=== PATIENT | male | born 1945 | race Caucasian/White ===

== ENCOUNTER 2021-07-14 07:26 | Day surgery (SDC) | payer OTHER ==
[~2021-07-14 07:26] MED LIST: Midazolam 1 MG/ML 2 ML SDV ONE; Propofol 200 MG/20 ML SDV ONE; fentaNYL 100 MCG/2 ML SDV ONE
[2021-07-14] MEDS ORDERED: Sodium Chloride 0.9% 1,000 ML IV SCH (08:00)
[2021-07-14 10:36] VITALS: BP 125/63; PULSE 74
--- NOTE | 2021-07-14 13:58 | OR ---
DATE OF PROCEDURE: 07/14/2021 SURGEON: Jorge Alberto Naylor MD PROCEDURES PERFORMED: 1. Esophagogastroduodenoscopy. 2. Colonoscopy. FINDINGS: 1. Duodenal ulcers, multiple, approximately 2 to 3 mm in size, not actively bleeding, consistent with chronic duodenal ulcer. 2. Diverticulosis, mild, limited to sigmoid colon. COMPLICATIONS: None. BIOINFORMATICS TEAM MEMBER: None. ANESTHESIA: MAC. PREOPERATIVE DIAGNOSIS: History of ulcers/screening colonoscopy. POSTOPERATIVE DIAGNOSIS: History of ulcers/screening colonoscopy. RISKS: Risks, benefits, alternatives, and limitations including, but not limited to infection, bleeding, perforation, false positive, and false negatives were explained to the patient who wished to proceed. PROCEDURE IN DETAIL: The patient was placed in left lateral decubitus position. The EGD scope was introduced and advanced atraumatically into the second part of the duodenum. Within the duodenal bulb itself, the patient had approximately 4 to 5 duodenal ulcers, approximately 1 to 2 mm in size. These appeared to be benign. They appeared to be chronic. Biopsies were performed in this proximity for H pylori evaluation. Within the stomach itself, there was no hiatal hernia. Very mild gastritis was noted. No abnormalities on retroflex. The GE junction was normal. The esophagus was normal. The air was removed from the stomach. Digital rectal exam was performed. Next, scope was introduced and advanced atraumatically to the ileocecal valve. A photo was taken of the appendiceal orifice. The scope was brought back through the ascending, transverse, descending colon, and retroflexed. The patient had somewhat tortuous sigmoid colon associated with diverticulosis without evidence of diverticulitis or bleeding. No old or new blood. No colitis. No polyps. No abnormalities on retroflex. Greater than 8 minutes was spent on removing the scope. The prep was acceptable. Approximately 90% of the luminal surface could be seen. The patient tolerated the procedure well. Jorge Alberto Naylor MD /[id number]
== END 2021-07-14 11:17 | disposition home or self-care (01) ==
LOC: JP.SDS 07:26
PROVIDERS: ATTEND Surgery
DX: Z12.11 Encounter for screening for malignant neoplasm of colon (principal); K57.30 Diverticulosis of large intestine without perforation or abscess without bleeding; K26.9 Duodenal ulcer, unspecified as acute or chronic, without hemorrhage or perforation; G47.33 Obstructive sleep apnea (adult) (pediatric); I11.0 Hypertensive heart disease with heart failure; I50.9 Heart failure, unspecified; I25.10 Atherosclerotic heart disease of native coronary artery without angina pectoris; I48.0 Paroxysmal atrial fibrillation; E66.9 Obesity, unspecified
CPT/HCPCS: 88305; J2250; J2704; J3010; J7030

== ENCOUNTER 2021-09-07 13:29 | Emergency (ER) | payer OTHER ==
[2021-09-07 14:05] VITALS: BP 105/75; PULSE 67
[2021-09-07] MEDS ORDERED: Sodium Chloride 0.9% 10 ML Syringe FLUSH PRN (14:59)
[2021-09-07] MEDS ORDERED: Loperamide 1 MG/7.5 ML 7.5 ML UD Cup PO ONE (15:00)
--- NOTE | 2021-09-07 15:05 | EDM.PDOC ---
ED HPI GENERAL MEDICAL PROBLEM - General Chief Complaint: Respiratory Problem Stated Complaint: COMPLICATIONS OF COVID Time Seen by Provider: 09/07/21 14:45 Source of Information: Reports: Patient, Old Records, RN History Limitations: Reports: No Limitations - History of Present Illness INITIAL COMMENTS - FREE TEXT/NARRATIVE: 76 yo male [place] patient presents with diarrhea and weakness for over a week. He has been dx with Covid now since about 10 days ago. SOB is not a big problem for him. He called the [facility] today and was told to come here. No fevers. No self tx. Here with his . Onset: Gradual Onset Date: 08/28/21 Duration: Day(s): (10+), Getting Worse (weakness is worse) Location: Reports: Generalized Quality: Reports: Other (pain not reported) Severity: Moderate (weakness) Improves with: Reports: Rest Worsens with: Reports: Movement (exertion) Context: Reports: Other (See HPI) Associated Symptoms: Reports: Loss of Appetite, Malaise, Weakness, Other (diarrhea). Denies: Cough, Fever/Chills, Nausea/Vomiting Treatments SHOPPER'S AIDE: Reports: Other (see below) (none) - Related Data Allergies Allergy/AdvReac Type Severity Reaction Status Date / Time bee venom protein (honey bee) Allergy Other Verified 09/07/21 14:15 eplerenone Allergy Other Verified 09/07/21 14:15 spironolactone Allergy Other Verified 09/07/21 14:15 Home Meds: Home Meds Apixaban [Eliquis] 5 mg PO BID 08/14/16 [History] Isosorbide Mononitrate [Imdur] 15 mg PO DAILY 08/14/16 [History] atorvaSTATin [Lipitor] 80 mg PO DAILY 08/14/16 [History] Albuterol [Proventil HFA] 200 puff INH Q4H 04/08/21 [History] EPINEPHrine [Epinephrine] 0.3 mg IM ASDIRECTED PRN 04/08/21 [History] Metoprolol Succinate 200 mg PO DAILY 04/08/21 [History] Torsemide 30 mg PO DAILY 04/08/21 [History] Ubidecarenone [Coenzyme Q10] 300 mg PO DAILY 04/08/21 [History] allopurinoL [Zyloprim] 200 mg PO BID 04/08/21 [History] traZODone 50 mg PO BEDTIME PRN 04/08/21 [History] Past Medical History HEENT History: Reports: Cataract, Impaired Vision Cardiovascular History: Reports: Afib, Bypass, CAD, Hypertension, Stents Respiratory History: Reports: Pneumonia, Recurrent, Sleep Apnea Gastrointestinal History: Reports: Other (See Below) Other Gastrointestinal History: history of stomach ulcer many years ago, according to patient Genitourinary History: Reports: Other (See Below) Other Genitourinary History: severed urethra; history of left nephrectomy Musculoskeletal History: Reports: Arthritis, Fracture Other Musculoskeletal History: pelvis, coccyx fracture Neurological History: Reports: TIA Endocrine/Metabolic History: Reports: Obesity/BMI 30+ - Infectious Disease History Infectious Disease History: Reports: Chicken Pox, Measles, Mumps, Rubella - Past Surgical History HEENT Surgical History: Reports: Eye Surgery, Other (See Below) Other HEENT Surgeries/Procedures: tear duct surgery Cardiovascular Surgical History: Reports: Carotid Endarterectomy, Coronary Artery Bypass Respiratory Surgical History: Reports: None GI Surgical History: Reports: Cholecystectomy, Colonoscopy, EGD, Hernia, Inguinal, Hernia Repair/Other Male Surgical History: Reports: Nephrectomy Neurological Surgical History: Reports: None Musculoskeletal Surgical History: Reports: Arthroscopic Knee Social & Family History - Tobacco Use Tobacco Use Status *Q: Never Tobacco User Second Hand Smoke Exposure: No - Caffeine Use Caffeine Use: Reports: None - Recreational Drug Use Recreational Drug Use: Yes ED ROS GENERAL - Review of Systems Review Of Systems: See Below Constitutional: Reports: Malaise, Weakness. Denies: Fever HEENT: Reports: No Symptoms Respiratory: Reports: No Symptoms Cardiovascular: Reports: Dyspnea on Exertion, Lightheadedness GI/Abdominal: Reports: Diarrhea. Denies: Black Stool, Bloody Stool, Nausea, Vomiting : Reports: No Symptoms Musculoskeletal: Reports: No Symptoms Skin: Reports: No Symptoms Neurological: Reports: No Symptoms ED EXAM, GENERAL - Physical Exam Exam: See Below Exam Limited By: No Limitations General Appearance: Alert, WD/WN, No Apparent Distress, Obese Eye Exam: Bilateral Eye: Normal Inspection Ears: Normal External Exam, Normal Canal, Hearing Grossly Normal Ear Exam: Bilateral Ear: Auricle Normal, Canal Normal Nose: Normal Inspection, No Blood Throat/Mouth: Normal Inspection, Normal Lips, Normal Oropharynx, Normal Voice, No Airway Compromise Head: Atraumatic, Normocephalic Neck: Normal Inspection Respiratory/Chest: No Respiratory Distress, Lungs Clear, Normal Breath Sounds, No Accessory Muscle Use Cardiovascular: Regular Rate, Rhythm, No Edema GI/Abdominal: Normal Bowel Sounds, Soft, Non-Tender, No Distention Extremities: Normal Inspection, Normal Range of Motion, Non-Tender, No Pedal Edema. No: Pedal Edema Neurological: Alert, Oriented, CN II-XII Intact, Normal Cognition, No Motor/Sensory Deficits Psychiatric: Normal Affect, Normal Mood Skin Exam: Warm, Dry, Intact, Normal Color, No Rash Course - Vital Signs Last Recorded V/S: Last Vital Signs Temp 36.6 C 09/07/21 14:22 Pulse 67 09/07/21 14:22 Resp 24 H 09/07/21 14:22 BP 105/75 09/07/21 14:22 Pulse Ox 93 L 09/07/21 14:22 - Orders/Labs/Meds Orders: Active Orders 24 hr Category Date Time Status Sodium Chloride 0.9% [Saline Flush] Med 09/07/21 14:59 Active 10 ml FLUSH ASDIRECTED PRN Saline Lock Insert [OM.PC] Routine Oth 09/07/21 14:59 Ordered Medication Orders Sodium Chloride (Sodium Chloride 0.9% 10 Ml Syringe) 10 ml FLUSH ASDIRECTED PRN PRN Reason: Keep Vein Open Last Admin: 09/07/21 15:21 Dose: 10 ml Documented by: FELICIA Labs: Laboratory Tests 09/07/21 09/07/21 09/07/21 Range/Units 15:06 15:15 15:15 WBC 7.2 (4.5-11.0) K/uL RBC 5.62 (4.30-5.90) M/uL Hgb 17.3 H D (12.0-15.0) g/dL Hct 53.2 (40.0-54.0) % MCV 95 (80-98) fL MCH 31 (27-31) pg MCHC 33 (32-36) % Plt Count 195 (150-400) K/uL Sodium 135 L (140-148) mmol/L Potassium 3.8 (3.6-5.2) mmol/L Chloride 97 L (100-108) mmol/L Carbon Dioxide 29 (21-32) mmol/L Anion Gap 12.8 (5.0-14.0) mmol/L BUN 74 H D (7-18) mg/dL Creatinine 2.6 H D (0.8-1.3) mg/dL Est Cr Clr Drug Dosing 28.98 mL/min Estimated GFR (MDRD) 24 L (>60) Glucose 114 H (74-106) mg/dL Calcium 9.1 (8.5-10.1) mg/dL Urine Color Yellow (YELLOW) Urine Appearance Cloudy A (CLEAR) Urine pH 5.5 (5.0-8.0) Ur Specific Cobb 1.015 (1.008-1.030) Urine Protein 30 H (NEGATIVE) mg/dL Urine Glucose (UA) Negative (NEGATIVE) mg/dL Urine Ketones Negative (NEGATIVE) mg/dL Urine Occult Blood Moderate H (NEGATIVE) Urine Nitrite Negative (NEGATIVE) Urine Bilirubin Negative (NEGATIVE) Urine Urobilinogen 1.0 (0.2-1.0) EU/dL Ur Leukocyte Esterase Negative (NEGATIVE) Urine RBC 5-10 H (0-5) Urine WBC 0-5 (0-5) Ur Epithelial Cells Occasional Amorphous Sediment Many Urine Bacteria Few Urine Mucus Occasional Urine Other See note Meds: Medications Generic Name Dose Route Start Last Admin Trade Name Freq PRN Reason Stop Dose Admin Sodium Chloride 10 ml 09/07/21 14:59 09/07/21 15:21 Sodium Chloride 0.9% 10 Ml Syringe FLUSH 10 ml ASDIRECTED PRN Administration Keep Vein Open Discontinued Medications Generic Name Dose Route Start Last Admin Trade Name Freq PRN Reason Stop Dose Admin Lactated Ringer's 1,000 mls @ 1,000 mls/hr 09/07/21 16:07 09/07/21 16:39 Ringers, Lactated IV 09/07/21 17:06 1,000 mls/hr BOLUS ONE Administration Loperamide HCl 4 mg 09/07/21 15:30 09/07/21 15:29 Loperamide 2 Mg Cap PO 09/07/21 15:31 4 mg ONETIME ONE Administration - Re-Assessments/Exams Free Text/Narrative Re-Assessment/Exam: 09/07/21 17:50 was able to safely walk with a walker after our tx's. Departure - Departure Time of Disposition: 17:55 Disposition: Home, Self-Care 01 Condition: Fair Clinical Impression: COVID-19, Mild dehydration Diarrhea Qualifiers: Diarrhea type: unspecified type Qualified Code(s): R19.7 - Diarrhea, unspecified - Discharge Information *PRESCRIPTION DRUG MONITORING PROGRAM REVIEWED*: Not Applicable *COPY OF PRESCRIPTION DRUG MONITORING REPORT IN PATIENT ZARIA: Not Applicable Referrals: PCP,None [Primary Care Provider] - Forms: ED Department Discharge Care Plan Goals: Take loperamide per package instructions as needed for diarrhea. Sip on Gatorade to maintain hydration. Stay in touch with your provider on your condition. Return as needed. Sepsis Event Note (ED) - Evaluation Sepsis Screening Result: No Definite Risk - Focused Exam Vital Signs: Vital Signs Temp Pulse Resp BP Pulse Ox 09/07/21 14:22 36.6 C 67 24 H 105/75 93 L 09/07/21 14:03 36.6 C 67 24 H 105/75 93 L - My Orders Last 24 Hours: My Active Orders 09/07/21 14:59 Sodium Chloride 0.9% [Saline Flush] 10 ml FLUSH ASDIRECTED PRN Saline Lock Insert [OM.PC] Routine - Assessment/Plan Last 24 Hours: My Active Orders 09/07/21 14:59 Sodium Chloride 0.9% [Saline Flush] 10 ml FLUSH ASDIRECTED PRN Saline Lock Insert [OM.PC] Routine
[2021-09-07] MEDS ORDERED: Loperamide 2 MG Cap PO ONE (15:30)
[2021-09-07] MEDS ORDERED: Lactated Ringers 1,000 ML IV ONE (16:07)
== END 2021-09-07 19:15 | disposition home or self-care (01) ==
LOC: JP.ED 13:29
DX: U07.1 COVID-19 (principal); E86.0 Dehydration; R19.7 Diarrhea, unspecified; I48.91 Unspecified atrial fibrillation; I25.810 Atherosclerosis of coronary artery bypass graft(s) without angina pectoris; I10 Essential (primary) hypertension; E66.9 Obesity, unspecified; Z68.33 Body mass index [BMI] 33.0-33.9, adult; Z91.030 Bee allergy status; Z88.8 Allergy status to other drugs, medicaments and biological substances; Z79.01 Long term (current) use of anticoagulants; Z79.899 Other long term (current) drug therapy
CPT/HCPCS: 36415; 80048; 81001; 85027; 99284; A9270; J7120

== ENCOUNTER → 2023-02-10 | Day surgery (SDC) | payer OTHER ==
[~2023-02-10] MED LIST changes: +Dextrose 5%-Lactated Ringers 1,000 ML IV SCH; -Midazolam 1 MG/ML 2 ML SDV ONE
[2023-02-10 09:23] VITALS: BP 125/67; PULSE 61
[2023-02-12 17:12] LABS: H. PYLORI BREATH TEST Negative (Negative)
== END ==
LOC: JP.SDS 06:07
PROVIDERS: ATTEND Surgery
DX: K29.80 Duodenitis without bleeding (principal); K29.50 Unspecified chronic gastritis without bleeding; E78.5 Hyperlipidemia, unspecified; I10 Essential (primary) hypertension; G47.33 Obstructive sleep apnea (adult) (pediatric); I25.10 Atherosclerotic heart disease of native coronary artery without angina pectoris; I48.91 Unspecified atrial fibrillation; Z87.11 Personal history of peptic ulcer disease; Z88.8 Allergy status to other drugs, medicaments and biological substances; Z91.030 Bee allergy status
CPT/HCPCS: 83013; 87081; J2704; J3010; J7121

== ENCOUNTER 2023-11-08 16:54 | Observation (INO) | payer OTHER, MEDICARE ==
[2023-11-08 17:53] LABS: CORONAVIRUS COVID-19 NAA NEGATIVE (NEGATIVE); INFLUENZA A NAA NEGATIVE (NEGATIVE); INFLUENZA B NAA NEGATIVE (NEGATIVE); RESPIRATORY SYNCYTIAL VIR NAA NEGATIVE (NEGATIVE)
[2023-11-08] MEDS ORDERED: Ondansetron 4 MG/2 ML SDV IV PRN (18:28)
[2023-11-08] MEDS ORDERED: Acetaminophen 325 MG Tab PO PRN (18:28)
[2023-11-08] MEDS ORDERED: Albuterol 0.083% 2.5 MG/3 ML Neb Soln NEB PRN (18:28)
[2023-11-08] MEDS ORDERED: Ondansetron 4 MG Tab.DIS PO PRN (18:28)
[2023-11-08] MEDS ORDERED: Melatonin 3 MG Tab PO PRN (18:28)
[2023-11-08] MEDS ORDERED: Benzonatate 100 MG Cap PO PRN (18:32)
[2023-11-08] MEDS: Doxycycline 100 MG Cap PO SCH (20:08)
[2023-11-08] MEDS: Lactobacillus Rhamnosus GG (Probiotic) Cap PO SCH (20:11)
[2023-11-08] MEDS ORDERED: Albuterol 6.7 GM Inhaler INH PRN (20:53)
[2023-11-08] MEDS: Apixaban 5 MG Tab PO SCH (21:27)
[2023-11-08] MEDS: Allopurinol 100 MG Tab PO SCH (21:28)
[2023-11-08] MEDS: Metoprolol Succinate 50 MG Tab.ER PO SCH (21:28)
[2023-11-08] MEDS: Hypromellose 0.3% Ophth Soln 15 ML Bottle EYEBOTH PRN ×2 (21:30→22:32)
[2023-11-08] MEDS: Codeine/guaiFENesin 10-100 MG/5 ML Syrup 5 ML Cup PO PRN (22:35)
[2023-11-09] MEDS: Pantoprazole 40 MG Tab.CR PO SCH (07:56)
[2023-11-09] MEDS: Hypromellose 0.3% Ophth Soln 15 ML Bottle EYEBOTH PRN ×4 (07:59→20:31)
[2023-11-09] MEDS ORDERED: UBIDECARENONE 100 MG PO SCH (09:00)
[2023-11-09] MEDS: Lactobacillus Rhamnosus GG (Probiotic) Cap PO SCH ×2 (10:23→20:28)
[2023-11-09] MEDS: Doxycycline 100 MG Cap PO SCH ×2 (10:23→20:38)
[2023-11-09] MEDS: Isosorbide Mononitrate 30 MG Tab.ER PO SCH (11:16)
[2023-11-09] MEDS: Allopurinol 100 MG Tab PO SCH ×2 (11:17→20:28)
[2023-11-09] MEDS: Apixaban 5 MG Tab PO SCH ×2 (11:17→20:28)
[2023-11-09] MEDS: guaiFENesin 600 MG Tab.ER PO SCH ×2 (13:11→20:28)
[2023-11-09] MEDS: Codeine/guaiFENesin 10-100 MG/5 ML Syrup 5 ML Cup PO PRN (14:42)
[2023-11-09] MEDS: Metoprolol Succinate 50 MG Tab.ER PO SCH (20:29)
[2023-11-10] MEDS: Codeine/guaiFENesin 10-100 MG/5 ML Syrup 5 ML Cup PO PRN (00:03)
[2023-11-10 06:14] VITALS: BP 118/60; PULSE 64
[2023-11-10] MEDS: Pantoprazole 40 MG Tab.CR PO SCH (08:11)
[2023-11-10] MEDS: Isosorbide Mononitrate 30 MG Tab.ER PO SCH (08:12)
[2023-11-10] MEDS: Lactobacillus Rhamnosus GG (Probiotic) Cap PO SCH (08:12)
[2023-11-10] MEDS: Apixaban 5 MG Tab PO SCH (08:12)
[2023-11-10] MEDS: guaiFENesin 600 MG Tab.ER PO SCH ×2 (08:12→13:10)
[2023-11-10] MEDS: Allopurinol 100 MG Tab PO SCH (08:13)
[2023-11-10] MEDS: Hypromellose 0.3% Ophth Soln 15 ML Bottle EYEBOTH PRN ×2 (08:13→13:11)
[2023-11-10] MEDS: Doxycycline 100 MG Cap PO SCH (08:19)
== END 2023-11-10 16:15 | disposition home or self-care (01) ==
LOC: JP.MS 16:54 → UNDOADMIN 16:54 → INTOOBSV 16:57 → JP.MS 16:57
PROVIDERS: ADMIT Internal Medicine; ATTEND Internal Medicine
DX: J06.9 Acute upper respiratory infection, unspecified (principal); I25.10 Atherosclerotic heart disease of native coronary artery without angina pectoris; I12.9 Hypertensive chronic kidney disease with stage 1 through stage 4 chronic kidney disease, or unspecified chronic kidney disease; N18.32 Chronic kidney disease, stage 3b; I48.91 Unspecified atrial fibrillation; E66.9 Obesity, unspecified; G47.30 Sleep apnea, unspecified; Z20.822 Contact with and (suspected) exposure to COVID-19; Z68.33 Body mass index [BMI] 33.0-33.9, adult; Z79.899 Other long term (current) drug therapy; Z98.890 Other specified postprocedural states; Z79.01 Long term (current) use of anticoagulants; Z91.030 Bee allergy status; Z88.8 Allergy status to other drugs, medicaments and biological substances
CPT/HCPCS: 0241U; 94667; 99222; 99232; 99238; A9270; G0378

== ENCOUNTER 2024-04-15 15:19 | Inpatient (IN) | payer OTHER, MEDICARE ==
[2024-04-15 16:11] LABS: APPEARANCE,URINE CLEAR (CLEAR); BILIRUBIN,URINE NEGATIVE (NEGATIVE); COLOR,URINE YELLOW (YELLOW); GLUCOSE,URINE NEGATIVE (NEGATIVE); KETONES,URINE NEGATIVE (NEGATIVE); LEUKOCYTE ESTERASE,URINE TRACE (NEGATIVE); NITRITE,URINE NEGATIVE (NEGATIVE); OCCULT BLOOD,URINE TRACE-INTACT (NEGATIVE); PROTEIN,URINE 100 mg/dL (NEGATIVE)
[2024-04-15 16:18] LABS: AMORPHOUS SEDIMENT,URINE NOT SEEN; BACTERIA,URINE NOT SEEN; EPITHELIAL CELLS,URINE RARE; MUCUS,URINE NOT SEEN; RBC,URINE 0-5 (0-5); WBC,URINE 0-5 (0-5)
[2024-04-15 16:28] LABS: BASOPHILS ABSOLUTE AUTO 0.04 K/uL (0.00-0.10); BASOPHILS PERCENT AUTO 0.7 % (0.1-1.3); HEMATOCRIT 47.7 % (38.4-49.7); HEMOGLOBIN 15.9 g/dL (12.9-16.9); IMMATURE GRAN ABSOLUTE AUTO 0.06 K/uL (0.00-0.23); LYMPHOCYTES ABSOLUTE AUTO 0.36 K/uL (0.8-3.3); LYMPHOCYTES PERCENT AUTO 6.1 % (11.4-47.7); MEAN CORPUSCULAR HEMOGLOBIN 31.9 pg (31.6-35.5); MEAN CORPUSCULAR HGB CONC 33.3 g/dL (31.6-35.5); MEAN CORPUSCULAR VOLUME 95.8 fL (81.4-99.0); MONOCYTES PERCENT AUTO 8.5 % (3.3-12.6); NEUTROPHILS ABSOLUTE AUTO 4.94 K/uL (1.0-7.6); NEUTROPHILS PERCENT AUTO 83.7 % (40.0-78.1); PLATELET COUNT,PLT 84 K/uL (130-375); RED BLOOD CELL COUNT 4.98 M/uL (4.14-5.76); WHITE BLOOD CELL COUNT,WBC 5.9 K/uL (3.2-11.0)
[2024-04-15] MEDS: Sodium Chloride 0.9% 1,000 ML IV ONE (16:30)
[2024-04-15] MEDS: cefTRIAXone 2 GM in Sodium Chloride 0.9% 50 ML IV ONE (16:35)
[2024-04-15 16:36] LABS: LACTIC ACID 1.8 mmol/L (0.4-2.0)
[2024-04-15 16:53] LABS: A/G RATIO 0.7 (1.2-2.2); ALANINE AMINOTRANSFERASE,ALT 35 U/L (12-78); ALBUMIN 3.5 g/dL (3.4-5.0); ALKALINE PHOSPHATASE 187 U/L (46-116); ASPARTATE AMNIOTRANSFERASE,AST 40 U/L (15-37); BILIRUBIN TOTAL 3.4 mg/dL (0.2-1.0); BLOOD UREA NITROGEN,BUN 53 mg/dL (7-18); C-REACTIVE PROTEIN 2.73 mg/dL (<0.50); CALCIUM 9.5 mg/dL (8.5-10.1); CARBON DIOXIDE,CO2 32 mmol/L (21-32); CHLORIDE,CL 96 mmol/L (100-108); EST CRCL DRUG DOSING (CG) 35.96 mL/min; ESTIMATED GFR 34 mL/min (>60); GLUCOSE RANDOM 123 mg/dL (74-106); POTASSIUM,K 4.5 mmol/L (3.6-5.2); PROTEIN TOTAL,TP 8.4 g/dL (6.4-8.2); SODIUM,NA 134 mmol/L (140-148)
[2024-04-15 16:54] LABS: ANION GAP 10.5 mmol/L (5.0-14.0)
[2024-04-15] MEDS: Acetaminophen 500 MG Tab PO ONE (19:08)
[2024-04-15 19:35] LABS: LYME AB IgG Negative (Negative)
[2024-04-15 19:36] LABS: LYME AB IgM Negative (Negative)
[2024-04-15] MEDS: Doxycycline 100 MG in Sodium Chloride 0.9% 100 ML IV ONE (19:43)
[2024-04-15 20:24] LABS: CORONAVIRUS COVID-19 NAA NEGATIVE (NEGATIVE); INFLUENZA A NAA NEGATIVE (NEGATIVE); INFLUENZA B NAA NEGATIVE (NEGATIVE); RESPIRATORY SYNCYTIAL VIR NAA NEGATIVE (NEGATIVE)
[2024-04-15] MEDS ORDERED: Ondansetron 4 MG Tab.DIS PO PRN (20:30)
[2024-04-15] MEDS ORDERED: Albuterol 6.7 GM Inhaler INH PRN (20:30)
[2024-04-15] MEDS ORDERED: Albuterol/Ipratropium 3.0-0.5 MG/3 ML Neb Soln NEB PRN (20:30)
[2024-04-15] MEDS ORDERED: oxyCODONE 5 MG Tab PO PRN (20:30)
[2024-04-15] MEDS ORDERED: Docusate Sodium 100 MG Cap PO PRN (20:30)
[2024-04-15] MEDS ORDERED: Nitroglycerin 0.4 MG Tab.SL SL PRN (20:30)
[2024-04-15] MEDS ORDERED: Acetaminophen 325 MG Tab PO PRN (20:30)
[2024-04-15] MEDS ORDERED: Bisacodyl 5 MG Tab PO PRN (20:30)
[2024-04-15] MEDS ORDERED: Sodium Chloride 0.9% 10 ML Syringe FLUSH PRN (20:30)
[2024-04-15] MEDS: Apixaban 5 MG Tab PO SCH (22:21)
[2024-04-15] MEDS: Allopurinol 100 MG Tab PO SCH (22:22)
[2024-04-15] MEDS: Metoprolol Succinate 50 MG Tab.ER PO SCH (22:22)
[2024-04-16] MEDS: Albuterol 0.083% 2.5 MG/3 ML Neb Soln NEB PRN (03:32)
[2024-04-16] MEDS: Codeine/guaiFENesin 10-100 MG/5 ML Syrup 5 ML Cup PO PRN (03:32)
[2024-04-16] MEDS: Acetaminophen 500 MG Tab PO PRN (03:32)
[2024-04-16 05:04] LABS: BASOPHILS ABSOLUTE AUTO 0.03 K/uL (0.00-0.10); BASOPHILS PERCENT AUTO 0.6 % (0.1-1.3); EOSINOPHILS PERCENT AUTO 0.2 % (0.0-5.4); HEMATOCRIT 42.8 % (38.4-49.7); HEMOGLOBIN 14.4 g/dL (12.9-16.9); IMMATURE GRAN ABSOLUTE AUTO 0.06 K/uL (0.00-0.23); IMMATURE GRAN PERCENT AUTO 1.2 % (0.0-0.7); LYMPHOCYTES ABSOLUTE AUTO 0.26 K/uL (0.8-3.3); LYMPHOCYTES PERCENT AUTO 5.1 % (11.4-47.7); MEAN CORPUSCULAR HGB CONC 33.6 g/dL (31.6-35.5); MEAN CORPUSCULAR VOLUME 95.1 fL (81.4-99.0); MONOCYTES ABSOLUTE AUTO 0.49 K/uL (0.20-0.90); MONOCYTES PERCENT AUTO 9.6 % (3.3-12.6); NEUTROPHILS ABSOLUTE AUTO 4.26 K/uL (1.0-7.6); NEUTROPHILS PERCENT AUTO 83.3 % (40.0-78.1); PLATELET COUNT,PLT 69 K/uL (130-375); WHITE BLOOD CELL COUNT,WBC 5.1 K/uL (3.2-11.0)
[2024-04-16 05:05] LABS: EOSINOPHILS ABSOLUTE AUTO 0.01 K/uL (0.00-0.40)
[2024-04-16 05:16] LABS: CALCIUM 8.8 mg/dL (8.5-10.1); CREATININE 1.8 mg/dL (0.8-1.3); EST CRCL DRUG DOSING (CG) 39.96 mL/min; POTASSIUM,K 4.1 mmol/L (3.6-5.2)
[2024-04-16 05:25] LABS: ANION GAP 14.1 mmol/L (5.0-14.0)
[2024-04-16] MEDS: Pantoprazole 40 MG Tab.CR PO SCH (09:09)
[2024-04-16] MEDS: cefTRIAXone 1 GM in Sodium Chloride 0.9% 50 ML IV SCH (09:39)
[2024-04-16] MEDS: Doxycycline 100 MG in Sodium Chloride 0.9% 100 ML IV SCH (10:14)
[2024-04-16] MEDS: Isosorbide Mononitrate 30 MG Tab.ER PO SCH (10:34)
[2024-04-17] MEDS: Melatonin 3 MG Tab PO PRN (01:52)
[2024-04-17 05:50] LABS: BASOPHILS PERCENT AUTO 0.4 % (0.1-1.3); EOSINOPHILS ABSOLUTE AUTO 0.04 K/uL (0.00-0.40); EOSINOPHILS PERCENT AUTO 0.8 % (0.0-5.4); HEMATOCRIT 42.9 % (38.4-49.7); HEMOGLOBIN 14.5 g/dL (12.9-16.9); IMMATURE GRAN ABSOLUTE AUTO 0.04 K/uL (0.00-0.23); IMMATURE GRAN PERCENT AUTO 0.8 % (0.0-0.7); LYMPHOCYTES ABSOLUTE AUTO 0.56 K/uL (0.8-3.3); LYMPHOCYTES PERCENT AUTO 11.4 % (11.4-47.7); MEAN CORPUSCULAR HEMOGLOBIN 32.2 pg (31.6-35.5); MEAN CORPUSCULAR HGB CONC 33.8 g/dL (31.6-35.5); MEAN CORPUSCULAR VOLUME 95.1 fL (81.4-99.0); MONOCYTES PERCENT AUTO 8.1 % (3.3-12.6); NEUTROPHILS ABSOLUTE AUTO 3.87 K/uL (1.0-7.6); NEUTROPHILS PERCENT AUTO 78.5 % (40.0-78.1); PLATELET COUNT,PLT 68 K/uL (130-375); RED BLOOD CELL COUNT 4.51 M/uL (4.14-5.76); WHITE BLOOD CELL COUNT,WBC 4.9 K/uL (3.2-11.0)
[2024-04-17 05:51] LABS: BASOPHILS ABSOLUTE AUTO 0.02 K/uL (0.00-0.10)
[2024-04-17 06:10] LABS: A/G RATIO 0.6 (1.2-2.2); ALANINE AMINOTRANSFERASE,ALT 35 U/L (12-78); ALBUMIN 2.8 g/dL (3.4-5.0); ALKALINE PHOSPHATASE 157 U/L (46-116); ASPARTATE AMNIOTRANSFERASE,AST 37 U/L (15-37); BILIRUBIN TOTAL 1.7 mg/dL (0.2-1.0); BLOOD UREA NITROGEN,BUN 52 mg/dL (7-18); CALCIUM 8.8 mg/dL (8.5-10.1); CARBON DIOXIDE,CO2 27 mmol/L (21-32); CHLORIDE,CL 97 mmol/L (100-108); CREATININE 1.7 mg/dL (0.8-1.3); EST CRCL DRUG DOSING (CG) 42.31 mL/min; ESTIMATED GFR 41 mL/min (>60); GLUCOSE RANDOM 119 mg/dL (74-106); MAGNESIUM 1.7 mg/dL (1.8-2.4); POTASSIUM,K 4.2 mmol/L (3.6-5.2); PROTEIN TOTAL,TP 7.2 g/dL (6.4-8.2); SODIUM,NA 133 mmol/L (140-148)
[2024-04-17 06:13] LABS: ANION GAP 13.2 mmol/L (5.0-14.0)
[2024-04-17] MEDS: Magnesium Oxide 400 MG Tab PO SCH (08:48)
[2024-04-17] MEDS: Magnesium Sulfate/Water 2 GM in Premix Bag 1 BAG IV SCH (10:13)
[2024-04-17] MEDS: GENTEAL TEARS EYEBOTH SCH (15:52)
[2024-04-18 06:29] LABS: HEMATOCRIT 41.7 % (38.4-49.7); HEMOGLOBIN 14.2 g/dL (12.9-16.9); MEAN CORPUSCULAR HGB CONC 34.1 g/dL (31.6-35.5); MEAN CORPUSCULAR VOLUME 93.9 fL (81.4-99.0); RED BLOOD CELL COUNT 4.44 M/uL (4.14-5.76); WHITE BLOOD CELL COUNT,WBC 4.4 K/uL (3.2-11.0)
[2024-04-18 06:30] LABS: A/G RATIO 0.6 (1.2-2.2); ALBUMIN 2.7 g/dL (3.4-5.0); ANION GAP 11.6 mmol/L (5.0-14.0); BLOOD UREA NITROGEN,BUN 56 mg/dL (7-18); CALCIUM 8.9 mg/dL (8.5-10.1); CARBON DIOXIDE,CO2 28 mmol/L (21-32); CHLORIDE,CL 97 mmol/L (100-108); CREATININE 1.8 mg/dL (0.8-1.3); EST CRCL DRUG DOSING (CG) 39.96 mL/min; ESTIMATED GFR 38 mL/min (>60); GLUCOSE RANDOM 123 mg/dL (74-106); POTASSIUM,K 4.6 mmol/L (3.6-5.2); SODIUM,NA 132 mmol/L (140-148)
[2024-04-18 06:31] LABS: ALANINE AMINOTRANSFERASE,ALT 40 U/L (12-78); ALKALINE PHOSPHATASE 189 U/L (46-116); ASPARTATE AMNIOTRANSFERASE,AST 43 U/L (15-37); BILIRUBIN TOTAL 1.5 mg/dL (0.2-1.0); MAGNESIUM 2.1 mg/dL (1.8-2.4)
[2024-04-19 18:26] VITALS: BP 141/63; PULSE 82
== END 2024-04-19 19:25 | disposition home or self-care (01) | DRG 868 ==
LOC: JP.ED 15:19 → JP.ICU 19:31
PROVIDERS: ADMIT Hospitalist; ATTEND Hospitalist
DX: R50.9 Fever, unspecified (principal); A79.82 Anaplasmosis [A. phagocytophilum]; Q60.0 Renal agenesis, unilateral; I48.21 Permanent atrial fibrillation; E78.00 Pure hypercholesterolemia, unspecified; I25.10 Atherosclerotic heart disease of native coronary artery without angina pectoris; I48.91 Unspecified atrial fibrillation; I50.9 Heart failure, unspecified; E66.9 Obesity, unspecified; Z91.048 Other nonmedicinal substance allergy status; M10.9 Gout, unspecified; R09.02 Hypoxemia; Z86.16 Personal history of COVID-19; G47.30 Sleep apnea, unspecified; N18.32 Chronic kidney disease, stage 3b; D69.6 Thrombocytopenia, unspecified; Z68.32 Body mass index [BMI] 32.0-32.9, adult; Z88.8 Allergy status to other drugs, medicaments and biological substances; Z90.5 Acquired absence of kidney; Z86.73 Personal history of transient ischemic attack (TIA), and cerebral infarction without residual deficits; Z91.030 Bee allergy status; Z79.01 Long term (current) use of anticoagulants; Z79.899 Other long term (current) drug therapy; Z90.49 Acquired absence of other specified parts of digestive tract; Z98.890 Other specified postprocedural states
CPT/HCPCS: 0241U; 36415; 71046; 71250; 80048; 80053; 81001; 83605; 83735; 83880; 84145; 84484; 85025; 85027; 86140; 86618; 87040; 93005; 93010; 94640; 96374; 99222; 99232; 99238; 99285; A9270-GY; J0696; J3475; J3490; J7030

== ENCOUNTER 2024-11-16 07:46 | Day surgery (SDC) | payer OTHER ==
[2024-11-16] MEDS ORDERED: Propofol 200 MG/20 ML SDV ONE (08:41)
[2024-11-16] MEDS ORDERED: fentaNYL 50 MCG/ML SDV ONE (08:41)
[2024-11-16] MEDS: Lactated Ringers 1,000 ML IV SCH (09:02)
[2024-11-16 12:35] VITALS: BP 110/58; PULSE 62
== END 2024-11-16 13:27 | disposition home or self-care (01) ==
LOC: JP.SDS 07:46
PROVIDERS: ATTEND Family Medicine
DX: K29.50 Unspecified chronic gastritis without bleeding (principal); K31.7 Polyp of stomach and duodenum; K25.3 Acute gastric ulcer without hemorrhage or perforation; I85.00 Esophageal varices without bleeding; K74.60 Unspecified cirrhosis of liver; I25.10 Atherosclerotic heart disease of native coronary artery without angina pectoris; I48.91 Unspecified atrial fibrillation; I50.9 Heart failure, unspecified
CPT/HCPCS: 00731-QZ; 43239; 88305; 88341; 88342; J2704; J3010; J7120